=== PATIENT | male | born 1955 | race Two or more races ===

== ENCOUNTER 2024-09-22 17:19 | Emergency (ER) | payer MEDICARE, MEDICAID, SELFPAY ==
[2024-09-22 17:37] VITALS: PULSE 71; RESP 20; O2SAT 99
[2024-09-22 17:47] VITALS: BP 178/96; PULSE 73; RESP 18; TEMP 37.1; O2SAT 99; BMI 23.3
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
[2024-09-22] MEDS: HYDROcodone/APAP 5/325 TABLET 1 TAB PO (20:14)
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
== END 2024-09-22 21:58 | disposition home or self-care (01) ==
PROVIDERS: Emergency Provider Emergency Medicine; PCP Physician Assistant
DX: S39.012A Strain of muscle, fascia and tendon of lower back, initial encounter (principal); S39.91XA Unspecified injury of abdomen, initial encounter; V89.9XXA Person injured in unspecified vehicle accident, initial encounter
CPT/HCPCS: 72100; 74176; 99284; A9270

== ENCOUNTER 2025-07-05 19:12 | Inpatient (IN) | payer MEDICARE, MEDICAID, SELFPAY ==
[2025-07-05 19:14] VITALS: BP 177/93; PULSE 74; RESP 19; TEMP 37.6; O2SAT 98
[2025-07-05 19:16] VITALS: BMI 23.7
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
--- NOTE | 2025-07-05 19:20 | XR_ITS ---
EXAMINATION: AP chest single view TECHNIQUE: AP portable semiupright chest single view Date and time: July 05, 2025, 2018 hours, comparison 05/18/2023 INDICATIONS: Onset dizziness shortness of breath today. FINDINGS: Normal heart size Lungs are clear. The osseous structures are intact IMPRESSION: No active disease
[2025-07-05 19:33] VITALS: PULSE 93; O2SAT 99
[2025-07-05 19:38] LABS: Basophils # (Auto) 0.1 Thou/mm3 (0.0-0.2); Basophils % (Auto) 1 % (0-2.5); Eosinophils # (Auto) 0.2 Thou/mm3 (0.0-0.5); Eosinophils % (Auto) 3 % (0-10); Hematocrit 42.0 % (41.0-53.0); Hemoglobin 15.5 g/dL (13.5-16.0); Immature Granulocytes Auto 0.01 Thou/mm3 (0.00-0.00); Lymphocytes # (Auto) 2.2 Thou/mm3 (1.0-4.8); Lymphocytes % (Auto) 34 % (10-50); Mean Corpuscular HGB Conc 36.9 g/dl (31.0-37.0); Mean Corpuscular Hemoglobin 31.6 pg (25.0-35.0); Mean Corpuscular Volume 86 fL (80-100); Monocytes # (Auto) 0.5 Thou/mm3 (0.0-0.8); Monocytes % (Auto) 8 % (0-12); Neutrophils # (Auto) 3.5 Thou/mm3 (1.8-7.7); Neutrophils % (Auto) 55 % (37-80); Nucleated Red Blood Cell # 0.00 Thou/mm3 (0.00-0.00); Nucleated Red Blood Cell % 0 /100 WBC (0); Platelet Count 239 Thou/mm3 (140-440); RDW Standard Deviation 38.3 fL (35.1-43.9); Red Blood Count 4.91 Miln/mm3 (4.50-5.90); White Blood Count 6.5 Thou/mm3 (3.8-10.6)
[2025-07-05 19:45] VITALS: BP 183/114; PULSE 74; RESP 18; O2SAT 100
[2025-07-05 19:57] LABS: Alanine Aminotransferase 14 U/L (10-49); Albumin, Serum 4.9 gm/dL (3.4-4.8); Albumin/Globulin Ratio 2.0 (1.2-2.2); Alkaline Phosphatase 45 U/L (46-116); Anion Gap 11 (7-16); Aspartate Amino Transferase 20 U/L (0-34); BUN/Creatinine Ratio 9 Ratio (12-20); Bilirubin,Total 0.9 mg/dL (0.3-1.2); Blood Urea Nitrogen 11 mg/dL (9-23); Calcium 10.1 mg/dL (8.3-10.6); Calcium (Corrected) 10.1 mg/dL (8.5-10.1); Carbon Dioxide 28.2 mMol/L (20.0-31.0); Chloride 102 mMol/L (98-107); Creatinine (Component) 1.2 mg/dL (0.6-1.3); Estimated Creatinine Clearance 63.8 mL/min (>60); Globulin 2.5 gm/dL (2.3-3.5); Glucose 119 mg/dL (74-106); Osmolality,Calculated 281 (275-295); Potassium 4.0 mMol/L (3.4-5.1); Sodium 141 mMol/L (136-145); Total Protein 7.4 gm/dL (5.7-8.2); Troponin I < 0.020 ng/mL (0.0-0.045); eGFR > 60 See Note
[2025-07-05] MEDS: RINGERS LACTATED 1000 ML 1,000 ML 999 ML IV (22:03)
[2025-07-05 22:30] LABS: Amorphous Crystals,Urine Present (Absent); Bacteria,Urine Rare; Bilirubin,Urine Negative (Negative); Blood,Urine Negative (Negative); Budding Yeast,Urine Present; Clarity,Urine Turbid (Clear/Hazy); Collection Type, Urine Clean Catch; Color,Urine Yellow (Lt Yel-Yel); Glucose, Urine Negative (Negative); Ketones,Urine Negative (Negative); Leukocyte Esterase,Urine Negative (Negative); Nitrite,Urine Negative (Negative); PH,Urine 7.5 (5.0-7.0); Protein,Urine Negative (Neg - Trace); RBC,Urine 4 /hpf (0-3); Specific Gravity,Urine 1.011 (1.001-1.035); Squamous Epithelial Cell,Urine 3 /hpf (0-5); Urobilinogen,Urine Negative mg/dL (0.0-1.0); WBC,Urine 18 /hpf (0-5)
[2025-07-05 22:35] VITALS: BP 181/93; PULSE 78; RESP 19; TEMP 37.2; O2SAT 100
[2025-07-05 22:38] LABS: Culture Indicated,Urine Yes
[2025-07-05 22:47] LABS: Amphetamine/Methamp Scrn,U Negative (Negative); Barbiturate Screen,Urine Negative (Negative); Benzodiazepines Screen,Urine Negative (Negative); Benzoylecgonine Screen, Ur Negative (Negative); Fentanyl Screen,Urine Negative (Negative); Opiate Screen,Urine Positive (Negative); THC Screen,Urine Negative (Negative)
[2025-07-05] MEDS: METOCLOPRAMIDE INJ 5 MG/ML VIAL 2 ML IVP (22:49)
--- NOTE | 2025-07-05 22:49 | XR_ITS ---
Examination: CTA carotids with intravenous contrast CTA brain, head with intravenous contrast. 2-D sagittal, coronal reconstructions. 3-D reconstructions. Exam date and time: July 05, 2025 11:11 p.m. INDICATIONS: Stroke alert, dizziness tremors today CTDI: vol (mGy) 11.3 DLP: (mGycm) 477 Technique: Multiple CTA axial brain, head carotid images post intravenous contrast injection 75 cc, [id number]. 2-D sagittal, coronal reconstructions. 3-D reconstructions, 3-D post processing including vascular maximum intensity projection images. Low dose protocols were performed. One or more of the following dose reduction techniques were used; automated exposure control, adjustment of the mA and/or KV according to patient size, use of iterative reconstruction technique. Findings: No significant common carotid carotid bifurcation or internal carotid artery stenoses Codominant vertebral arteries in the neck with no significant stenoses Intracranial vertebral arteries basilar artery posterior cerebral branches fill with no large vessel occlusions Middle cerebral anterior cerebral arteries also demonstrate no large vessel occlusions IMPRESSION: No significant neck arterial stenoses No cerebral large vessel arterial occlusions or thrombus
[2025-07-05 23:20] VITALS: BP 170/83; PULSE 81; RESP 14; TEMP 37.2; O2SAT 99
--- NOTE | 2025-07-05 23:26 | PC.NURSE ---
stroke called at [address] ding request. pt was taken to ct with this rn and tech. teleneuro activated, but still no tele doc on screen
--- NOTE | 2025-07-05 23:41 | PD.EDADDENDU ---
Emergency Room Addendum <Angela Huerta - Last Filed: 07/06/25 00:52> Addendum Narrative: I took over the care from previous shift physician, Dr. Baum, on 11:30pm. See previous notes for complete H & P and ED course. I reviewed all diagnostic test results. Diagnoses include: Stroke-like symptoms Treatment here from me included: Rocephin Plavix I discussed the case with our teleneurologist. About the presentation and exam and diagnostics and treatments here. Recommends admission to the hospitalist service for further work-up. I discussed the case with our hospitalist. About the presentation and exam and diagnostics and treatments here. And need of further care in the hospital. Will accept the patient. Audi Scott MD <Audi Scott MD - Last Filed: 07/06/25 01:59> Addendum Narrative: I took over the care from previous shift physician, Dr. Baum, 11:30 PM on 07/05/2025. See previous notes for complete H & P and ED course. I reviewed all diagnostic test results. Diagnoses include: Stroke-like symptoms UTI Treatment here from me included: Rocephin Plavix ASA I discussed the case with our teleneurologist. About the presentation and exam and diagnostics and treatments here. Recommended admission to the hospitalist service for further work-up. I discussed the case with our hospitalist. About the presentation and exam and diagnostics and treatments here. And need of further care in the hospital. Will accept the patient. Audi Scott MD
[2025-07-06] VITALS (11 sets, daily range): BP systolic 153–193; BP diastolic 83–104; PULSE 84–106; RESP 14–21; TEMP 36.2–37.2; O2SAT 95–100
--- NOTE | 2025-07-06 | XR_ITS ---
Examination: MRI brain without intravenous contrast. MRI brain with intravenous contrast MRA brain without intravenous contrast MRA carotids with intravenous contrast Date and time of exam: July 06, 2025, 0952 hours INDICATIONS: Syncopal episode this morning Technique: Multiple axial and sagittal images of the brain obtained. Pre and post intravenous administration 20 cc gadolinium Siemens high-resolution 1.5 Arely short bore scanners utilized. Sagittal sections, T1-weighted, TR 500, TE 14, are performed. Axial sections proton-density and T2-weighted have been obtained. Inversion recovery axial images, TR 9, 260, TE 111, TI 2500. Diffusion weighted images, axial sections, TR 4800, TE 128, B value 1000 Axial sections, ADC map, TR 4800, TE 128 MR a neck images post intravenous administration 20 cc gadolinium 3D angiographic reconstructions including postprocessing 3D imaging Findings: Enlargement of the sella turcica is not present. The optic chiasm and infundibular are not remarkable. Prepontine and interpeduncular cisterns are not enlarged. There is no localized enlargement of the medulla or arleen. Fourth ventricle and cerebellar tonsils appear normal in position. No subacute area of hemorrhage density is seen. Mass in the cerebellopontine angle region is not evident. Globes symmetrical. Orbital musculature including medial lateral rectus muscles do not exhibit abnormality. Diffusion-weighted images demonstrate no focus of restricted diffusion Large area of encephalomalacia versus arachnoid cyst peripheral to the left cerebral hemisphere. Increased white matter signal not seen Mass effect upon the ventricular system is not identified. Impression: Negative for acute hemorrhage mass effect or midline shift No acute infarct Negative for acute hemorrhage mass effect or midline shift No abnormal enhancing cerebellar or cerebral lesions No carotid stenoses No cerebral large vessel arterial occlusions
--- NOTE | 2025-07-06 00:09 | PD.TNEURO ---
Tele Neuro Consultation Consultation Date 07/06/25 Most Recent Vital Signs Last Vital Signs Temp 99 F 07/05/25 23:20 Pulse 81 07/05/25 23:20 Resp 14 07/05/25 23:20 BP 170/83 H 07/05/25 23:20 Pulse Ox 99 07/05/25 23:20 O2 Del Method Room Air 07/05/25 23:20 Consultation Narrative [facility] Tele[facility]rology [facility] Patient Name:???mega mota Date of :???1955 Identification Number:??? Date of Service:???07/05/2025 22:50:55 Diagnosis:?R42 - Dizziness/ Vertigo/ Giddiness Impression: ?Patient with h/o HTN, HLD, who presents with presyncopal dizziness, especlally upon standing. He had a fall with mild head injury. On exam has some R facial numbness and bilateral visual field defect in the upper quadrants. CTH shows L frontotemporal subarachnoid cyst that is large but to my comparisons back to 2007 appear stable and may be incidental. We have to rule out orthostatic hypotension. Stroke or cardiovascular syncope or other causes (toxic/metabolic/infectious/anemia) for dizziness may be present. If no other cause is found and dizziness persists, then routine NSG consult may be needed. Patient is outside the window for IV thrombolytics. CTA shows NO LVO. admit for further workup. Our recommendations are outlined below. Recommendations: ? Stroke/Telemetry Floor ? Neuro Checks ? Bedside Swallow Eval ? DVT Prophylaxis ? IV Fluids, Normal Saline ? Head of Bed 30 Degrees ? Euglycemia and Avoid Hyperthermia (PRN Acetaminophen) ? Initiate dual antiplatelet therapy with Aspirin 81 mg daily and Clopidogrel 75 mg daily. ? Antihypertensives PRN if Blood pressure is greater than 220/120 or there is a concern for End organ damage/contraindications for permissive HTN. If blood pressure is greater than 220/120 give labetalol PO or IV or Vasotec IV with a goal of 15% reduction in BP during the first 24 hours. ? admit for further stroke and syncope workup. ?Rule out orthostatic hypotension ?cardiac workup for syncope ?If no other cause is found and dizziness persists, consider NSG consultation to review imaging as well. Sign Out: ? Discussed with Emergency Department Provider Advanced Imaging: CTA Head and Neck Completed. LVO:No Patient is not a candidate for DALJIT Metrics: Last Known Well: 07/05/2025 16:00:00 Dispatch Time: 07/05/2025 22:50:55 Arrival Time: 07/05/2025 19:12:00 Initial Response Time: 07/05/2025 23:03:21Symptoms: dizziness. Initial patient interaction: 07/05/2025 23:31:21 NIHSS Assessment Completed: 07/05/2025 23:33:09Patient is not a candidate for Thrombolytic. Thrombolytic Medical Decision: 07/05/2025 23:35:04Patient was not deemed candidate for Thrombolytic because of following reasons: LKW outside 4.[address] Head: I personally reviewed all the CT images that were available to me and it showed: large L frontotemporal subarachnoid cyst, No Acute Hemorrhage or Acute Core Infarct Primary Provider Notified of Diagnostic Impression and Management Plan on: 07/05/2025 23:58:33 History of Present Illness:Patient is a 70 year old Male. Patient was brought by EMS for symptoms of dizziness. he had a fall today where he felt he was going to pass out and laid himself down but still bumped his head on the back. He crawled and got an aspirin, then he started getting lightheaded and dizzy. this has persisted and he is unable to stand without getting dizzy. lying down helps. He is getting LR bolus. He has a mass in the brain but he says I'm told its nothing to worry about . He has baseline tremor since childhood. Patient sometimes uses a cane. Past Medical History: ?Hypertension ?Hyperlipidemia Other PMH:? L fronto temporal large subarachnoid cyst Medications: No Anticoagulant use? No Antiplatelet use Reviewed EMR for current medications Allergies:? Reviewed Social History: Smoking: No Family History: There is no family history of premature cerebrovascular disease pertinent to this consultation ROS : 14 Points Review of Systems was performed and was negative except mentioned in HPI. Past Surgical History: There Is No Surgical History Contributory To Today?s Visit Examination: BP(170/83),?Pulse(87), 1A: Level of Consciousness - Alert; keenly responsive?+ 0 1B: Ask Month and Age - Both Questions Right?+ 0 1C: Blink Eyes & Squeeze Hands - Performs Both Tasks?+ 0 2: Test Horizontal Extraocular Movements - Normal?+ 0 3: Test Visual Cohen - Bilateral Hemianopia?+ 3 4: Test Facial Palsy (Use Grimace if Obtunded) - Normal symmetry?+ 0 5A: Test Left Arm Motor Drift - No Drift for 10 Seconds?+ 0 5B: Test Right Arm Motor Drift - No Drift for 10 Seconds?+ 0 6A: Test Left Leg Motor Drift - No Drift for 5 Seconds?+ 0 6B: Test Right Leg Motor Drift - No Drift for 5 Seconds?+ 0 7: Test Limb Ataxia (FNF/Heel-Garcia) - No Ataxia?+ 0 8: Test Sensation - Mild-Moderate Loss: Less Sharp/More Dull?+ 1 9: Test Language/Aphasia - Normal; No aphasia?+ 0 10: Test Dysarthria - Normal?+ 0 11: Test Extinction/Inattention - No abnormality?+ 0 NIHSS Score:?4 NIHSS Free Text :?numbness on R face ?cannot stand without feeling dizzy Pre-Morbid Modified Calvin Scale: 1 Points = No significant disability despite symptoms; able to carry out all usual duties and activities Spoke with :?Dr Scott This consult was conducted in real time using interactive audio and video technology. Patient was informed of the technology being used for this visit and agreed to proceed. Patient located in hospital and provider located at home/office setting. Patient is being evaluated for possible acute neurologic impairment and high probability of imminent or life-threatening deterioration. I spent total of 35 minutes providing care to this patient, including time for face to face visit via telemedicine, review of medical records, imaging studies and discussion of findings with providers, the patient and/or family. Dr Lamine Stephens [facility] For Inpatient follow-up with [facility] physician please call [facility] at . As we are not an outpatient service for any post hospital discharge needs please contact the hospital for assistance. If you have any questions for the [facility] physicians or need to reconsult for clinical or diagnostic changes please contact us via [facility] at . Signature :Meme Stephens
[2025-07-06] MEDS: cefTRIAXone/D5w 1gm IV premix 1 GM/50 ML BAG IV (00:14)
[2025-07-06] MEDS: ASPIRIN 81 MG CHEW 324 MG PO (00:14)
[2025-07-06] MEDS: CLOPIDOGREL BISULFATE 75 MG TABLET PO ×2 (00:14→10:45)
--- NOTE | 2025-07-06 01:01 | PD.RESHP ---
Documentation for date of: 07/06/25 [facility] History of Present Illness History of present illness: Mr. Shen is a 70 y/o male with PMH left frontotemporal subarachnoid cyst (diagnosed 2007), hypertension, hyperlipidemia, tremor who presents with acute onset dizziness. LKAW 16:00 on 07/05. NIHSS 4. Patient was at home when he suddenly felt like the room was spinning, had lightheadedness, and felt that he was about to pass out. He lowered himself to the ground but hit his left wrist and left posterior head on the way down. He felt too dizzy to stand up and called EMS. Denies previous episodes. Associated with nausea which has resolved with metoclopramide. Denies syncope, headache, acute changes in vision, chest pain/pressure, shortness of breath, tinnitus, fullness of ear, recent illness, palpitations, sweating, paresthesias, weakness. PCP: Kathrine Jay NP Previously followed with Dr. Millard, Dr. Ledesma. Also saw a neurologist in [facility]. Has never had any surgical intervention for the subarachnoid cyst. ED course: Afebrile. BP 170-180s/80-110s. CBC and CMP unremarkable. UA negative for UTI. UDS + opiates. Stroke alert called. LKAW 16:00 on 07/05. NIHSS 4. Tele-neuro's exam showed R facial numbness and bilateral visual field defect in the upper quadrants. CT head showed stable large subarachnoid cyst since 2007, per tele neurologist and radiologist. No previous head imaging available in EMR. CTA showed no LVO. Wrist XR showed no fracture. CXR unremarkable. Given 1L LR, metoclopramide 5 mg IV, ceftriaxone 1 g IV, Aspirin 325 mg PO, plavix 75 mg PO. PMHx: left frontotemporal subarachnoid cyst (diagnosed 2007), hypertension, hyperlipidemia, tremor, depression, anxiety, low back pain/L leg pain Allergies: NKDA Home meds: Pt does not know what medications he takes, but does note that he takes 3 BP meds, 2 depression/anxiety meds, statin, med for triglycerides, and Roy PRN Pending med rec SgHx: none SHx: Denies tobacco, EtOH, recreational drug use. Lives alone in apartment. FHx: none reported Review of Systems Review of Systems Narrative Review of Systems: 14 point ROS negative other than HPI Exam Vital Signs Temp Pulse Resp BP Pulse Ox O2 Del Method 99 F 81 14 170/83 H 99 Room Air 07/05/25 23:20 07/05/25 23:20 07/05/25 23:20 07/05/25 23:20 07/05/25 23:20 07/05/25 23:20 Narrative Exam General: No acute distress, well nourished Eye: PERRL, EOMI, normal conjunctiva, no scleral icterus HENT: Normocephalic, atraumatic, normal hearing, moist oral mucosa Neck: Supple, non-tender, no JVD, no lymphadenopathy Lungs: Clear to auscultation bilaterally, non-labored respirations, symmetric chest rise, no use of accessory muscles Heart: Normal S1 and S2, no S3 or S4 appreciated. Normal rate and regular rhythm, no murmurs, rubs gallops, or edema. Peripheral pulses intact bilaterally, capillary refill brisk distally Abdomen: Soft, non-tender, non-distended, normal bowel sounds. No guarding or rebound tenderness. Musculoskeletal: Normal range of motion and strength, no tenderness or swelling Skin: Skin is warm, dry, no rashes or lesions. Psychiatric: Cooperative, appropriate mood and affect Neurologic: Mental status: Orientation: Oriented to person, place, time, and situation Communication: Patient is cooperative and can follow simple instructions Language: Speech fluent, normal rate and volume, comprehension intact Cranial nerves: CN II: Visual tay intact CN III: Pupils equal, round, and reactive to light CN III, IV, : No gaze deviation, no nystagmus Horizontal pursuit: intact Vertical pursuit: intact Ptosis: none CN V: Facial sensation to light touch intact bilaterally at the forehead, cheeks, and jaw line CN VII: Face symmetric, no facial droop appreciated CN VIII: Able to hear and respond to conversation at normal volume, intact to finger rub CN IX, X: Palate elevation symmetric, uvula midline CN XI: Head turn and shoulder shrug strong, symmetric bilaterally CN XII: Normal tongue protrusion without deviation, no fasciculations Motor: Normal bulk and tone No atrophy Tremor of b/l UE, at rest and action, worse with intentional actions, worse with anxiety, also includes head (present since childhood) Muscle strength: Shoulder abduction: R 5/5 L 5/5 Elbow flexion: R 5/5 L 5/5 Elbow extension: R 5/5 L 5/5 Hip flexion: R 5/5 L 5/5 Hip extension: R 5/5 L 5/5 Knee flexion: R 5/5 L 5/5 Knee extension: R 5/5 L 5/5 Sensory: RUE: Light touch intact LUE: Light touch intact RLE: Light touch intact LLE: Light touch intact Reflexes: Biceps (C5-6): R 3+ L 3+ Brachioradialis (C5-6): R 3+ L 3+ Triceps (C7-8): R 3+ L 3+ Patellae (L3-4): R 3+ L 3+ Achilles (S1-2):R 3+ L 3+ No clonus Cerebellum: RUE: Dysmetria present (finger to nose) LUE: Dysmetria present (finger to nose) RLE: No dysmetria (heel to heath) LLE: No dysmetria (heel to heath) Romberg: patient refused to stand Gait: Patient refused to stand 2/2 vertigo Results: Labs 07/06/25 04:38 07/06/25 04:38 Labs: Short CBC 07/05/25 Range/Units 19:32 WBC 6.5 (3.8-10.6) Thou/mm3 Hgb 15.5 (13.5-16.0) g/dL Hct 42.0 (41.0-53.0) % Plt Count 239 (140-440) Thou/mm3 BMP 07/05/25 19:32 Sodium 141 Potassium 4.0 Chloride 102 Carbon Dioxide 28.2 BUN 11 Creatinine 1.2 Glucose 119 H Calcium 10.1 Cardiac Enzymes 07/05/25 Range/Units 19:32 Troponin I < 0.020 (0.0-0.045) ng/mL Liver Function 07/05/25 Range/Units 19:32 Total Bilirubin 0.9 (0.3-1.2) mg/dL AST 20 (0-34) U/L ALT 14 (10-49) U/L Alkaline Phosphatase 45 L (46-116) U/L Albumin 4.9 H (3.4-4.8) gm/dL Urine 07/05/25 07/05/25 Range/Units 22:01 22:35 Urine Color Cancelled Yellow Urine Clarity Cancelled Turbid A Urine pH Cancelled 7.5 H Ur Specific [place] Cancelled 1.011 Urine Protein Cancelled Negative Urine Glucose (UA) Cancelled Negative Quality Measures Quality Measures none Advance care planning discussed with:: patient Medications Home Medications and Allergies Home Medications ?Medication ?Instructions ?Recorded ?Confirmed ?Type benazepril 40 mg tablet (Lotensin) 40 mg PO DAILY #0 mg 08/13/13 07/06/25 History hydrochlorothiazide 25 mg tablet 25 mg PO QAM #0 mg 08/13/13 07/06/25 History metoprolol succinate 25 mg 1 tab PO BID ##0 08/13/13 07/06/25 History tablet,extended release 24 hr paroxetine HCl 40 mg tablet (Paxil) 40 mg PO QAM #0 mg 08/13/13 07/06/25 History divalproex 250 mg tablet,delayed 250 mg PO BID 01/03/19 07/06/25 History release hydrocodone 5 mg-acetaminophen 300 1 tab PO Q12H 01/03/19 07/06/25 History mg tablet atorvastatin 10 mg tablet 10 mg PO DAILY 07/06/25 07/06/25 History fenofibrate 120 mg tablet 120 mg PO DAILY 07/06/25 07/06/25 History Allergies Allergy/AdvReac Type Severity Reaction Status Date / Time No Known Allergies Allergy Verified 07/05/25 19:32 Visit Medications Acetaminophen (Acetaminophen 325 Mg Tablet) 650 mg PO Q6H PRN PRN Reason: Fever >100.3 Stop: 08/05/25 00:54 Acetaminophen (Acetaminophen 325 Mg Tablet) 650 mg PO Q6H PRN PRN Reason: PAIN SCALE 1-3 (mild Stop: 08/05/25 00:54 Heparin Sodium (Porcine) (Heparin Sod Inj 5000 Unit/Ml Vial) 5,000 unit SC Q8HR BEN Stop: 07/20/25 05:59 Ondansetron HCl (Ondansetron Inj 2 Mg/Ml Inj 2 Ml) 4 mg IVP Q6H PRN; Protocol PRN Reason: NAUSEA OR VOMITING Stop: 08/05/25 00:54 Discontinued Medications Aspirin (Aspirin 81 Mg Chew) 324 mg PO X1 ONE Stop: 07/05/25 23:52 Last Admin: 07/06/25 00:14 Dose: 324 mg Clopidogrel Bisulfate (Clopidogrel Bisulfate 75 Mg Tablet) 75 mg PO X1 ONE Stop: 07/05/25 23:52 Last Admin: 07/06/25 00:14 Dose: 75 mg Lactated Ringer's (Lactated Ringers) 1,000 mls @ 999 mls/hr IV .Q1H1M ONE Stop: 07/05/25 22:33 Last Infusion: 07/05/25 23:45 Dose: Infused Ceftriaxone Sodium/Dextrose (Rocephin/D5w 1gm Iv Premix) 1 gm in 50 mls @ 100 mls/hr IV X1 ONE Stop: 07/06/25 00:17 Last Infusion: 07/06/25 00:45 Dose: Infused Metoclopramide HCl (Metoclopramide Inj 5 Mg/Ml Vial 2 Ml) 5 mg IVP STAT STA; Protocol Stop: 07/05/25 22:41 Last Admin: 07/05/25 22:49 Dose: 5 mg Assessment & Plan Plan Mr. Shen is a 70 y/o male with PMH left frontotemporal subarachnoid cyst (diagnosed 2007), hypertension, hyperlipidemia, tremor who presents with acute onset dizziness. LKAW 16:00 on 07/05. NIHSS 4. Admitted for stroke w/u. #Vertigo #Dysmetria #c/f stroke Hx stroke/TIA: none Hx afib: none Smoking hx: none Initial symptoms: acute onset dizziness/vertigo (ongoing), nausea (improved with metoclopramide), presyncope, dysmetria (though may be exacerbated by chronic tremor), R facial numbness and bilateral visual field defect in the upper quadrants. LKAW: 16:00 on 07/05 Initial NIHSS: 4 Inital BP: 170/385d-53-400o Initial glucose: 119 UDS: + opiated (rx Roy for chronic pain) CT head w/o: Large left subarachnoid cyst present, causing mass effect. No acute hemorrhage. CTA head/neck w/: No LVO MRI/MRA w/ and w/o: pending Meds given: Aspirin 325 mg PO, Plavix 75 mg DDX: cerebellar stroke, mass effect from left subarachnoid cyst, vestibular neuritis. Less likely BPPV given sx not positional, vertigo is persistent. Less likely labyrinthitis or Meniere disease given no hearing loss/tinnitus/ear fullness. Plan: - Pending A1C, lipid panel, TSH, troponin, MRI, TTE, EKG, bedside swallow eval - Started aspirin 81 mg PO daily, plavix 75 mg PO daily - Neuro Checks q4h - Antihypertensives PRN if Blood pressure is greater than 220/120 or there is a concern for End organ damage/contraindications for permissive HTN. If blood pressure is greater than 220/120 give labetalol PO or IV or Vasotec IV with a goal of 15% reduction in BP during the first 24 hours. - Aspiration Precautions, Head of bed 30 degrees - Euglycemia and avoid Hyperthermia - Consulted neuro, appreciate recs #Left subarachnoid cyst Diagnosed 2007. Has seen multiple neurologists in the past, including Dr. Meyer. No previous surgical intervention. Seen on CT head. Stable per tele neuro and radiology, though no previous head imaging available on this EMR Plan: - If other sources of vertigo/dysmetria ruled out, can consider transfer for neurosurgery #Preyncope No anemia on CBC, no hx heart disease/arrhythmias. Electrolytes WNL. Less likely infection as patient has no fever, no leukocytosis, no shortness of breath/cough, urinary sx Given 1L LR in ED DDX: cardiac arrhythmia, orthostatic hypotension, aortic stenosis, opiates/medications Plan: - Pending orthostatics (ordered for 7 AM 07/06) - Pending TTE #Tremor Present since childhood Tremor of b/l UE, at rest and action, worse with intentional actions, worse with anxiety, also includes head (present since childhood) Most likely essential tremor. Plan: - Nothing to do at this time since tremor is not bothersome to patient - Can consider propranolol if pharmacological intervention deemed necessary #Ground level fall 2/2 dizziness, presyncope Not on blood thinners CT head showd no acute hemorrhage XR wrist showed no fracture. Pt reports his wrist feels better Plan: - CTM with neuro checks - Fall precautions #Hypertension Pt takes 3 BP meds at home, does not know which ones Plan: - Pending med rec #Hyperlipidemia Plan: - Atorvastatin 80 mg PO daily for plaque stabilization #Depression #Anxiety Home med: Paxil (unknown dose), Divalproax (unknown dose, DC vs EC?) Plan: - Paroxetine 40 mg daily (home med) - Pending med rec Checklist Dispo: Admit to tele for q4h neuro checks Diet: Pending bedside swallow eval Bowel Reg: n/a VTE ppx: heparin subQ GI ppx: n/a Pain mgmt: Tylenol PRN Code status: full Plan discussed with Dr. Padron and Dr. Maldonado Chavez MD PGY1 Attending Provider Attestation/Addendum 70-year-old male patient with hypertension, hyperlipidemia, depression, subarachnoid sees sudden onset of dizziness described as spinning sensation and unable to have a steady gait. This happened at home. Patient denies syncopal episode no apparent syncopal episode no nausea vomiting. He denies trauma or head injury. CT scan of the brain without contrast showed no acute infarction. Patient will be admitted for stroke workup. He has history of subarachnoid cyst. I discussed with and supervised the resident physician who took care of this patient. I agree with the assessment and plan as above.
--- NOTE | 2025-07-06 01:31 | ECHO_ITS ---
Transthoracic Echo Report Ht (in): 73 Wt (lb): 180 Exam Location: Echo Lab Status: Inpatient Baseball Coach: Laine Almeida Indications: Procedure Performed: BP: 167 / 91 HR: 89 MEASUREMENTS (Male / Female) Normal Values 2D ECHO LV Ejection Fraction MOD BP 68.2 % >= 55 % LV Cardiac Index MOD BP 2987.4 cm?/min?m? LV Ejection Fraction MOD 4C 70.3 % LV Cardiac Index MOD 4C 3503.4 cm?/min?m? LV Ejection Fraction 4C AL 71.1 % LV Cardiac Index 4C AL 3773.7 cm?/min?m? LV Ejection Fraction MOD 2C 66.6 % LV Cardiac Index MOD 2C 2410.8 cm?/min?m? LV Ejection Fraction 2C AL 68.6 % LV Cardiac Index 2C AL 2541.0 cm?/min?m? LA Volume Index 12.3 cm?/m? 16 - 28 cm?/m? M-MODE Aortic Root Diameter MM 2.6 cm LA Systolic Diameter MM 3.3 cm LA Ao Ratio MM 1.3 AV Cusp Separation MM 2.0 cm DOPPLER AV Peak Velocity 135.0 cm/s AV Peak Gradient 7.3 mmHg AV Mean Gradient 4.0 mmHg AV Velocity Time Integral 28.2 cm AI Peak Velocity 178.0 cm/s AI Peak Gradient 12.7 mmHg AI Pressure Half Time 597.0 ms LVOT Peak Velocity 105.0 cm/s LVOT Peak Gradient 4.4 mmHg LVOT Velocity Time Integral 21.2 cm MV Area PHT 4.1 cm? Mitral E Point Velocity 64.0 cm/s Mitral A Point Velocity 72.8 cm/s Mitral E to A Ratio 0.9 LV E' Lateral Velocity 8.6 cm/s Mitral E to LV E' Lateral Ratio 7.5 LV E' Septal Velocity 7.7 cm/s Mitral E to LV E' Septal Ratio 8.3 TR Peak Velocity 235.0 cm/s TR Peak Gradient 22.1 mmHg PV Peak Velocity 110.0 cm/s PV Peak Gradient 4.8 mmHg FINDINGS Left Ventricle Normal left ventricular size, wall thickness, systolic function with no obvious regional wall motion abnormalities. There is grade I diastolic dysfunction of the left ventricle (impaired relaxation pattern). The ejection fraction is visually estimated at 55-60%. Right Ventricle The right ventricle is normal in size and systolic function. Left Atrium The left atrium is normal by two-dimensional, color flow and Doppler imaging with no structural abnormalities, no thrombus formation present. Right Atrium The right atrium is normal by two-dimensional imaging, color flow and Doppler imaging with no structural abnormalities, no thrombus formation present. Atrial Septum The interatrial septum appears normal with no evidence of a shunt. Aorta The aorta is normal by two-dimensional, color flow and Doppler interrogation. Mitral Valve The mitral valve is normal by two-dimensional, color flow and Doppler interrogation. There is no significant mitral valve regurgitation, stenosis or prolapse. Aortic Valve The aortic valve is trileaflet and normal by two-dimensional, color flow and Doppler interrogation. Mild aortic valve regurgitation. Tricuspid Valve The tricuspid valve is normal by two-dimensional, color flow and Doppler interrogation. There is trace tricuspid valve regurgitation. Pulmonic Valve The pulmonic valve is not well visualized. There is no significant pulmonic valve regurgitation. Vessels The pulmonary artery appears normal. The inferior vena cava pulmonary and hepatic veins appear normal. Pericardium The pericardium is normal by two-dimensional imaging. There is no significant pericardial effusion. CONCLUSIONS Indication: Stroke negative Bubble study Agitated saline contrast was performed, with no evidence on intra-cardiac shunt. Normal left ventricular size and function. There is grade I diastolic dysfunction. Estimated EF at 55-60%. The RV is normal in size and systolic function. Trace mitral and trace tricuspid regurgitation Xiomara Golden (Electronically Signed) Final Date: 06 July 2025 19:14
[2025-07-06 05:11] LABS: Basophils # (Auto) 0.1 Thou/mm3 (0.0-0.2); Basophils % (Auto) 1 % (0-2.5); Eosinophils # (Auto) 0.0 Thou/mm3 (0.0-0.5); Eosinophils % (Auto) 0 % (0-10); Hematocrit 41.6 % (41.0-53.0); Hemoglobin 14.9 g/dL (13.5-16.0); Immature Granulocytes Auto 0.03 Thou/mm3 (0.00-0.00); Lymphocytes # (Auto) 1.8 Thou/mm3 (1.0-4.8); Lymphocytes % (Auto) 19 % (10-50); Mean Corpuscular HGB Conc 35.8 g/dl (31.0-37.0); Mean Corpuscular Hemoglobin 31.0 pg (25.0-35.0); Mean Corpuscular Volume 87 fL (80-100); Monocytes # (Auto) 0.4 Thou/mm3 (0.0-0.8); Monocytes % (Auto) 5 % (0-12); Neutrophils # (Auto) 7.2 Thou/mm3 (1.8-7.7); Neutrophils % (Auto) 76 % (37-80); Nucleated Red Blood Cell # 0.00 Thou/mm3 (0.00-0.00); Nucleated Red Blood Cell % 0 /100 WBC (0); Platelet Count 259 Thou/mm3 (140-440); RDW Standard Deviation 38.6 fL (35.1-43.9); Red Blood Count 4.81 Miln/mm3 (4.50-5.90); White Blood Count 9.5 Thou/mm3 (3.8-10.6)
[2025-07-06 05:26] LABS: Glucose Estimated Average 111 mg/dL (80-131); Hemoglobin A1C 5.5 % Hgb (4.8-6.0)
[2025-07-06 05:32] LABS: Anion Gap 12 (7-16); BUN/Creatinine Ratio 11 Ratio (12-20); Blood Urea Nitrogen 11 mg/dL (9-23); Calcium 9.4 mg/dL (8.3-10.6); Carbon Dioxide 25.6 mMol/L (20.0-31.0); Cardiac Risk Estimate 4.6 RATIO (4.0-6.7); Chloride 103 mMol/L (98-107); Cholesterol 147 mg/dL (132-200); Creatinine (Component) 1.0 mg/dL (0.6-1.3); Estimated Creatinine Clearance 76.6 mL/min (>60); Glucose 128 mg/dL (74-106); HDL Cholesterol 32 mg/dL (40-60); LDL Cholesterol,Calculated 96 mg/dL (0-130); Magnesium 1.8 mg/dL (1.6-2.6); Osmolality,Calculated 282 (275-295); Potassium 3.5 mMol/L (3.4-5.1); Sodium 141 mMol/L (136-145); Thyroid Stimulating Hormone 3.47 uIU/mL (0.55-4.78); Triglycerides 96 mg/dL (30-150); Troponin I < 0.020 ng/mL (0.0-0.045); eGFR > 60 See Note
--- NOTE | 2025-07-06 07:52 | PC.NURSE ---
Report received from pm nurse, patient to er with c/o sudden onset of dizziness yest. approx. 4pm yest., patient states he has a sense of spinning, worsens with movement and better when he remains still, currently dizziness is mild lying in gurney, patient gcs 15 at this time, c/o feeling weakness in both legs, skin is warm dry and pink, patient awaiting bed on floor, call light within reach.
--- NOTE | 2025-07-06 07:55 | PC.NURSE ---
Patient taken off bedpan, small dark brown stool noted, placed patient back onto bedpan do to him stating, i think i still need to go , clean bed rosas placed underneath patient, call light within reach.
--- NOTE | 2025-07-06 08:39 | PC.NURSE ---
called Donna in hematology regarding Coagulation studies, states they should result in approx. 15-20nin.
--- NOTE | 2025-07-06 08:42 | PC.NURSE ---
Spoke with Dr. Brady regarding patient stating he is clausterphobic and states i freak out in the MRI machine states he will place orders for medication to be given before MRI exam, Spoke with Coby pet technologist and states she will call me when she is ready to take patient for MRI, Patient made aware.
[2025-07-06 08:45] LABS: INR 1.1 (0.9-1.3); Partial Thromboplastin Time 26.0 Seconds (22.0-36.0); Prothrombin Time 11.9 Seconds (9.0-12.2)
--- NOTE | 2025-07-06 09:15 | PC.NURSE ---
Patient had hard large brown bm
[2025-07-06] MEDS: HEPARIN SOD INJ 5000 UNIT/ML VIAL SC ×3 (09:25→23:00)
[2025-07-06] MEDS: POTASSIUM CHL 10 mEq IVPB 10 MEQ/100 ML BAG 100 MEQ IV ×4 (09:31→15:06)
[2025-07-06] MEDS: MIDAZOLAM INJ 1 MG/ML VIAL 2 ML 2 MG IVP (09:46)
[2025-07-06] MEDS: ASPIRIN EC 81 MG TABEC PO (09:46)
--- NOTE | 2025-07-06 09:46 | PC.NURSE ---
potassium iv delayed, patient going to mri
--- NOTE | 2025-07-06 10:46 | PC.NURSE ---
Patient back from MRI, restarted potassium chloride.
--- NOTE | 2025-07-06 13:25 | ESPR_ITS ---
Documentation for date of: 07/06/25 Patient is a 70-year-old male with a past medical history of hypertension, hyperlipidemia, tremors, and frontotemporal subarachnoid cyst (2008 diagnosed) that appears to be stable who presented to the emergency room with a chief complaint of vertigo with generalized weakness. Upon admission given generalized weakness concern for stroke with well last known time of 1600. Initial NIHSS 1. CT head negative. Head and neck CTA negative for large vessel occlusion or stenosis of the carotid. MRI ordered. PT and speech evaluation added. Echo pending. LIpid Panel Triglycerides 96, cholesterol 147, HDl 32, LDL 96-->ASCVD 8.0 Moderate to high intensity. Pending echo w/ bubble study. Linsiopril resumed, follow up with [facility] provider for further adjutments. Vertico and Pre-syncope, penidng orthostatic vitals. EEG, pending. Orthostatic vitals pending. Senior Resident Attestation: I have discussed the case with supervising physician and consultant internship physician involved in the care of patient. I personally saw and examined patient and discussed the assessment and plan with the entire medical team, including attending. I agree with assessment and plan as documented below. - The patient's plan was discussed with attending Dr. Emily Vazquez MD PGY2 Internal Medicine Subjective Subjective Interval history: No overnight events. Patient was examined at bedside; they appear A&Ox4 and in NAD. Vitals/labs today significant for BP 167/91 and potassium 3.5. HgbA1c returned WNL at 5.5. Physical exam was benign and did not demonstrate any focal neurological deficits. Patient denied experiencing anything resembling a seizure nor hearing anyone endorse witnessing a seizure-like event from him. Plan Updates: -Ordered 07/06 EEG awake and drowsy, results pending -Started PO lisinopril 40 mg qD -Started IV labetalol 10 mg q10MIN prn for SBP>220 or DBP>105 or end organ damage (permissive hypertension for stroke protocol) -Started Cardiac Diet Exam Vital Signs Temp Pulse Resp BP Pulse Ox O2 Del Method 97.2 F 84 21 H 156/95 H 98 Room Air 07/06/25 12:00 07/06/25 12:00 07/06/25 12:00 07/06/25 12:00 07/06/25 12:00 07/06/25 12:00 Narrative Exam General: No acute distress, well nourished Eye: PERRL, EOMI, normal conjunctiva, no scleral icterus HENT: Normocephalic, atraumatic, normal hearing, moist oral mucosa Neck: Supple, non-tender, no JVD, no lymphadenopathy Lungs: Clear to auscultation bilaterally, non-labored respirations, symmetric chest rise, no use of accessory muscles Heart: Normal S1 and S2, no S3 or S4 appreciated. Normal rate and regular rhythm, no murmurs, rubs gallops, or edema. Peripheral pulses intact bilaterally, capillary refill brisk distally Abdomen: Soft, non-tender, non-distended, normal bowel sounds. No guarding or rebound tenderness. Musculoskeletal: Normal range of motion and strength, no tenderness or swelling Skin: Skin is warm, dry, no rashes or lesions. Neurologic: No facial droop appreciated. Facial sensation to light touch intact bilaterally at the forehead, cheeks, and jaw line. Able to smile, raise eyebrows, and puff out cheeks normally. 5/5 muscle strength of BUE and BLE. Psychiatric: Cooperative, appropriate mood and affect Objective Labs 07/07/25 05:37 07/07/25 05:37 Labs: Laboratory Results - last 24 hr 07/05/25 07/05/25 07/05/25 19:32 22:01 22:35 WBC 6.5 RBC 4.91 Hgb 15.5 Hct 42.0 MCV 86 MCH 31.6 MCHC 36.9 RDW Std Deviation 38.3 Plt Count 239 Neut % (Auto) 55 Lymph % (Auto) 34 [place] % (Auto) 8 Eos % (Auto) 3 Baso % (Auto) 1 Neut # (Auto) 3.5 Lymph # (Auto) 2.2 [place] # (Auto) 0.5 Eos # (Auto) 0.2 Baso # (Auto) 0.1 Immature Gran # (Auto) 0.01 H Absolute Nucleated RBC 0.00 Immature Gran % 0 Nucleated RBC % 0 PT INR APTT Sodium 141 Potassium 4.0 Chloride 102 Carbon Dioxide 28.2 Anion Gap 11 BUN 11 Creatinine 1.2 Estim Creat Clear Calc 63.8 eGFR > 60 BUN/Creatinine Ratio 9 L Glucose [address] Glu mg/dL Hemoglobin A1c Calculated Osmolality 281 Calcium 10.1 Corrected Calcium 10.1 Magnesium Total Bilirubin 0.9 AST 20 ALT 14 Alkaline Phosphatase 45 L Troponin I < 0.020 Total Protein 7.4 Albumin 4.9 H Globulin 2.5 Albumin/Globulin Ratio 2.0 Triglycerides Cholesterol LDL Cholesterol, Calc HDL Cholesterol Cholesterol/HDL Ratio TSH Ur Collection Type Cancelled Clean Catch Urine Color Cancelled Yellow Urine Clarity Cancelled Turbid A Urine pH Cancelled 7.5 H Ur Specific [place] Cancelled 1.011 Urine Protein Cancelled Negative Urine Glucose (UA) Cancelled Negative Urine Ketones Cancelled Negative Urine Blood Cancelled Negative Urine Nitrite Cancelled Negative Urine Bilirubin Cancelled Negative Urine Urobilinogen (Auto) Cancelled Negative Ur Leukocyte Esterase Cancelled Negative Urine RBC Cancelled 4 H Urine WBC Cancelled 18 H Ur Squamous Epith Cells Cancelled 3 Ur Transition Epith Cell Cancelled Ur Renal Epithelial Cell Cancelled Calcium Carbonate Cryst Cancelled Calcium Phosphate Cryst Cancelled Calcium Oxalate Crystal Cancelled Leucine Crystals Cancelled Cystine Crystals Cancelled Uric Acid Crystals Cancelled Triple Phos Crystals Cancelled Tyrosine Crystals Cancelled Amorphous Crystals Cancelled Present A Urine Bacteria Cancelled Rare Cellular Casts Cancelled Epithelial Casts Cancelled Fatty Casts Cancelled Hyaline Casts Cancelled Granular Casts Cancelled Waxy Casts Cancelled Broad Casts Cancelled RBC Casts Cancelled Urine Mucus Cancelled Urine Trichomonas Cancelled Ur Yeast w Hyphae Cancelled Urine Yeast (Budding) Cancelled Present A Urine Sperm Cancelled Ur Oval Fat Bodies Cancelled Ur Culture Indicated? Yes Urine Opiates Screen Positive A Urine Fentanyl Screen Negative Ur Barbiturates Screen Negative U Amphetamin/Meth Scrn Negative U Benzodiazepines Scrn Negative U Cocaine Metab Screen Negative U Marijuana (THC) Screen Negative 07/06/25 07/06/25 04:38 07:22 WBC 9.5 D RBC 4.81 Hgb 14.9 Hct 41.6 MCV 87 MCH 31.0 MCHC 35.8 RDW Std Deviation 38.6 Plt Count 259 Neut % (Auto) 76 Lymph % (Auto) 19 [place] % (Auto) 5 Eos % (Auto) 0 Baso % (Auto) 1 Neut # (Auto) 7.2 Lymph # (Auto) 1.8 [place] # (Auto) 0.4 Eos # (Auto) 0.0 Baso # (Auto) 0.1 Immature Gran # (Auto) 0.03 H Absolute Nucleated RBC 0.00 Immature Gran % 0 Nucleated RBC % 0 PT 11.9 INR 1.1 APTT 26.0 Sodium 141 Potassium 3.5 D Chloride 103 Carbon Dioxide 25.6 Anion Gap 12 BUN 11 Creatinine 1.0 Estim Creat Clear Calc 76.6 eGFR > 60 BUN/Creatinine Ratio 11 L Glucose [address] Glu mg/dL 111 Hemoglobin A1c 5.5 Calculated Osmolality 282 Calcium 9.4 Corrected Calcium Magnesium 1.8 Total Bilirubin AST ALT Alkaline Phosphatase Troponin I < 0.020 Total Protein Albumin Globulin Albumin/Globulin Ratio Triglycerides 96 Cholesterol 147 LDL Cholesterol, Calc 96 HDL Cholesterol 32 L Cholesterol/HDL Ratio 4.6 TSH 3.47 Ur Collection Type Urine Color Urine Clarity Urine pH Ur Specific [place] Urine Protein Urine Glucose (UA) Urine Ketones Urine Blood Urine Nitrite Urine Bilirubin Urine Urobilinogen (Auto) Ur Leukocyte Esterase Urine RBC Urine WBC Ur Squamous Epith Cells Ur Transition Epith Cell Ur Renal Epithelial Cell Calcium Carbonate Cryst Calcium Phosphate Cryst Calcium Oxalate Crystal Leucine Crystals Cystine Crystals Uric Acid Crystals Triple Phos Crystals Tyrosine Crystals Amorphous Crystals Urine Bacteria Cellular Casts Epithelial Casts Fatty Casts Hyaline Casts Granular Casts Waxy Casts Broad Casts RBC Casts Urine Mucus Urine Trichomonas Ur Yeast w Hyphae Urine Yeast (Budding) Urine Sperm Ur Oval Fat Bodies Ur Culture Indicated? Urine Opiates Screen Urine Fentanyl Screen Ur Barbiturates Screen U Amphetamin/Meth Scrn U Benzodiazepines Scrn U Cocaine Metab Screen U Marijuana (THC) Screen Quality Measures Quality Measures none Advance care planning discussed with:: patient Assessment & Plan Assessment Current Active Medications: Generic Name Dose Route Start Last Admin Trade Name Freq PRN Reason Stop Dose Admin Acetaminophen 650 mg 07/06/25 00:55 Acetaminophen 325 Mg Tablet PO 08/05/25 00:54 Q6H PRN Fever >100.3 Acetaminophen 650 mg 07/06/25 00:55 Acetaminophen 325 Mg Tablet PO 08/05/25 00:54 Q6H PRN PAIN SCALE 1-3 (mild Aspirin 81 mg 07/06/25 09:00 07/06/25 09:46 Aspirin Ec 81 Mg Tabec PO 08/05/25 08:59 81 mg QDAY BEN Administration Atorvastatin Calcium 80 mg 07/06/25 21:00 Atorvastatin Calcium 20 Mg Tablet PO 08/05/25 20:59 HS BEN Clopidogrel Bisulfate 75 mg 07/06/25 09:00 07/06/25 10:45 Clopidogrel Bisulfate 75 Mg Tablet PO 08/05/25 08:59 75 mg QDAY BEN Administration Heparin Sodium (Porcine) 5,000 unit 07/06/25 06:00 07/06/25 09:25 Heparin Sod Inj 5000 Unit/Ml Vial SC 07/20/25 05:59 5,000 unit Q8HR BEN Administration Ondansetron HCl 4 mg 07/06/25 00:55 Ondansetron Inj 2 Mg/Ml Inj 2 Ml IVP 08/05/25 00:54 Q6H PRN NAUSEA OR VOMITING Protocol Paroxetine HCl 40 mg 07/06/25 09:00 07/06/25 12:11 Paroxetine Hcl 10 Mg Tablet PO 08/05/25 08:59 40 mg QDAY BEN Administration Sennosides 1 tab 07/06/25 09:00 07/06/25 10:41 Senna/Docusate Sod 1 Tab Tablet PO 08/05/25 08:59 Not Given QDAY BEN Protocol Plan Mr. Shen is a 70 y/o male with PMH left frontotemporal subarachnoid cyst (diagnosed 2007), hypertension, hyperlipidemia, tremor who presents with acute onset dizziness. LKAW 16:00 on 07/05. NIHSS 4. Admitted for stroke w/u. #Vertigo #Dysmetria #c/f stroke Hx stroke/TIA: none Hx afib: none Smoking hx: none Initial symptoms: acute onset dizziness/vertigo (ongoing), nausea (improved with metoclopramide), presyncope, dysmetria (though may be exacerbated by chronic tremor), R facial numbness and bilateral visual field defect in the upper quadrants. LKAW: 16:00 on 07/05 Initial NIHSS: 4 Inital BP: 170/[id number] Initial glucose: 119 UDS: + opiates (rx [place] for chronic pain) CT head w/o: Large left subarachnoid cyst present, causing mass effect. No acute hemorrhage. CTA head/neck w/: No LVO MRI/MRA w/ and w/o: showed large area of encephalomalacia versus arachnoid cyst peripheral to the left but was negative for ischemic or hemorrhagic stroke cerebral hemisphere. Meds given: Aspirin 325 mg PO, Plavix 75 mg DDX: cerebellar stroke, mass effect from left subarachnoid cyst, vestibular neuritis. Less likely BPPV given sx not positional, vertigo is persistent. Less likely labyrinthitis or Meniere disease given no hearing loss/tinnitus/ear fullness. Dx: -Ordered 07/06 EEG awake and drowsy, results pending Plan: - Pending A1C (5.5), lipid panel, TSH, troponin, MRI, TTE, EKG, bedside swallow eval - Started aspirin 81 mg PO daily, plavix 75 mg PO daily - Neuro Checks q4h -Started IV labetalol 10 mg q10MIN prn if Blood pressure is greater than 220/120 or there is a concern for End organ damage/contraindications for permissive HTN. If blood pressure is greater than 220/120 give labetalol PO or IV or Vasotec IV with a goal of 15% reduction in BP during the first 24 hours. - Aspiration Precautions, Head of bed 30 degrees - Euglycemia and avoid Hyperthermia - Consulted neuro, appreciate recs #Left subarachnoid cyst Diagnosed 2007. Has seen multiple neurologists in the past, including Dr. Meyer. No previous surgical intervention. Seen on CT head. Stable per tele neuro and radiology, though no previous head imaging available on this EMR Plan: - If other sources of vertigo/dysmetria ruled out, can consider transfer for neurosurgery #Presyncope No anemia on CBC, no hx heart disease/arrhythmias. Electrolytes WNL. Less likely infection as patient has no fever, no leukocytosis, no shortness of breath/cough, urinary sx Given 1L LR in ED DDX: cardiac arrhythmia, orthostatic hypotension, aortic stenosis, opiates/medications Plan: - Pending orthostatics (ordered for 7 AM 07/06), results WNL - Pending TTE #Tremor Present since childhood Tremor of b/l UE, at rest and action, worse with intentional actions, worse with anxiety, also includes head (present since childhood) Most likely essential tremor. Plan: - Nothing to do at this time since tremor is not bothersome to patient - Can consider propranolol if pharmacological intervention deemed necessary #Ground level fall 2/2 dizziness, presyncope Not on blood thinners CT head showd no acute hemorrhage XR wrist showed no fracture. Pt reports his wrist feels better Plan: - CTM with neuro checks - Fall precautions #Hypertension Pt takes 3 BP meds at home (PO Lotensin 40 mg qD, PO HCTZ 25 mg qAM, and PO metoprolol succinate 1 tab BID) Recent BPs have been in the 180s/100s Rx: -Started PO lisinopril 40 mg qD #Hyperlipidemia Plan: - Atorvastatin 80 mg PO daily for plaque stabilization #Depression #Anxiety Home med: Paxil (unknown dose), Divalproax (unknown dose, DC vs EC?) Plan: - Paroxetine 40 mg daily (home med) Checklist Dispo: Admit to tele for q4h neuro checks Diet: Cardiac Bowel Reg: Started PO Senna/Docusate 1 tab qD VTE ppx: heparin subQ GI ppx: n/a Pain mgmt: Tylenol PRN Code status: full Plan discussed with attending Dr. Diaz and senior resident Dr. Taylor Infante, DO Internal Medicine, PGY-1 Attending Provider Attestation/Addendum I have examined the patient, reviewed labs and imaging findings, discussed the case with the resident(s), and reviewed entered orders. I agree with the plan of care as outlined in this note. Dr. Emily MD
--- NOTE | 2025-07-06 19:09 | PC.NURSE ---
transferred pt.to [id number] with all personal belongings.
--- NOTE | 2025-07-06 19:24 | PD.RESPRO ---
Documentation for date of: 07/06/25 Subjective Subjective Interval history: Patient examined at bedside. Vitals are stable, labs significant for A1c 5.5, TSH 3.47, lipid pannel unremarkable. CT head negative, CT head and neck negative for any LVO. MRI resulted negative as well for no acute infarcts or hemorrhage or mass effect. Patient endorses dizziness with positional change and with head movement. Denies any nausea or vomiting. Worse when laying down and endorsing decreased appetite due to anxiety. Patient follows with neurology Dr. Meyer. States that he has not had surgery done in the past in regard to his brain cyst. Plan to continue aspirin, Plavix, atorvastatin. EEG is pending, continue permissive HTN. Exam Vital Signs Temp Pulse Resp BP Pulse Ox O2 Del Method 97.7 F 86 14 169/97 H 97 Room Air 07/06/25 16:00 07/06/25 16:00 07/06/25 16:00 07/06/25 16:00 07/06/25 16:00 07/06/25 16:00 Narrative Exam GENERAL APPEARANCE: Elderly male, well-nourished in no acute distress. HEENT: Normocephalic, atraumatic, extraocular movements intact. Pupils: Equal reacting to light and accommodation NECK: Supple, no JVD or bruits. CARDIOVASULAR: Heart: S1, S2 heard, regular without S3-S4 or murmur no rubs or gallops. LUNGS/CHEST: Clear to auscultation bilaterally. No rails, rhonchi, or wheezing. Normal inspection. ABDOMEN: Soft, nontender, with normal bowel sounds. No pulsatile masses. No rebound, rigidity, or guarding. Normal inspection and palpation. EXTREMITIES: Normal inspection and palpation. No edema, clubbing or cyanosis. SKIN: Warm and dry without rashes. Normal inspection. MUSCULOSKELETAL: No cervical, thoracic, lumbar or midline bony tenderness. Normal inspection. NEURO: Alert, awake and oriented x3. Cranial nerves: II through XII grossly intact. Speech and language: Normal with no dysarthria or dysphasia. Motor system: Tone and bulk: Normal: Strength: 5 out of 5 in all 4 extremities; No pronator drift noted. Plantar reflex: Downgoing bilaterally. Sensory system: Intact to all modalities of sensation bilaterally. Coordination: Intact to [id number] test. Postive for b/l tremors. Gait: Not tested. No signs of meningeal irritation noted. PSYCHIATRIC: Normal mood and affect. Objective Labs 07/07/25 05:37 07/07/25 05:37 Labs: Laboratory Results - last 24 hr 07/05/25 07/05/25 07/05/25 19:32 22:01 22:35 WBC 6.5 RBC 4.91 Hgb 15.5 Hct 42.0 MCV 86 MCH 31.6 MCHC 36.9 RDW Std Deviation 38.3 Plt Count 239 Neut % (Auto) 55 Lymph % (Auto) 34 [place] % (Auto) 8 Eos % (Auto) 3 Baso % (Auto) 1 Neut # (Auto) 3.5 Lymph # (Auto) 2.2 [place] # (Auto) 0.5 Eos # (Auto) 0.2 Baso # (Auto) 0.1 Immature Gran # (Auto) 0.01 H Absolute Nucleated RBC 0.00 Immature Gran % 0 Nucleated RBC % 0 PT INR APTT Sodium 141 Potassium 4.0 Chloride 102 Carbon Dioxide 28.2 Anion Gap 11 BUN 11 Creatinine 1.2 Estim Creat Clear Calc 63.8 eGFR > 60 BUN/Creatinine Ratio 9 L Glucose [address] Glu mg/dL Hemoglobin A1c Calculated Osmolality 281 Calcium 10.1 Corrected Calcium 10.1 Magnesium Total Bilirubin 0.9 AST 20 ALT 14 Alkaline Phosphatase 45 L Troponin I < 0.020 Total Protein 7.4 Albumin 4.9 H Globulin 2.5 Albumin/Globulin Ratio 2.0 Triglycerides Cholesterol LDL Cholesterol, Calc HDL Cholesterol Cholesterol/HDL Ratio TSH Ur Collection Type Cancelled Clean Catch Urine Color Cancelled Yellow Urine Clarity Cancelled Turbid A Urine pH Cancelled 7.5 H Ur Specific [place] Cancelled 1.011 Urine Protein Cancelled Negative Urine Glucose (UA) Cancelled Negative Urine Ketones Cancelled Negative Urine Blood Cancelled Negative Urine Nitrite Cancelled Negative Urine Bilirubin Cancelled Negative Urine Urobilinogen (Auto) Cancelled Negative Ur Leukocyte Esterase Cancelled Negative Urine RBC Cancelled 4 H Urine WBC Cancelled 18 H Ur Squamous Epith Cells Cancelled 3 Ur Transition Epith Cell Cancelled Ur Renal Epithelial Cell Cancelled Calcium Carbonate Cryst Cancelled Calcium Phosphate Cryst Cancelled Calcium Oxalate Crystal Cancelled Leucine Crystals Cancelled Cystine Crystals Cancelled Uric Acid Crystals Cancelled Triple Phos Crystals Cancelled Tyrosine Crystals Cancelled Amorphous Crystals Cancelled Present A Urine Bacteria Cancelled Rare Cellular Casts Cancelled Epithelial Casts Cancelled Fatty Casts Cancelled Hyaline Casts Cancelled Granular Casts Cancelled Waxy Casts Cancelled Broad Casts Cancelled RBC Casts Cancelled Urine Mucus Cancelled Urine Trichomonas Cancelled Ur Yeast w Hyphae Cancelled Urine Yeast (Budding) Cancelled Present A Urine Sperm Cancelled Ur Oval Fat Bodies Cancelled Ur Culture Indicated? Yes Urine Opiates Screen Positive A Urine Fentanyl Screen Negative Ur Barbiturates Screen Negative U Amphetamin/Meth Scrn Negative U Benzodiazepines Scrn Negative U Cocaine Metab Screen Negative U Marijuana (THC) Screen Negative 07/06/25 07/06/25 04:38 07:22 WBC 9.5 D RBC 4.81 Hgb 14.9 Hct 41.6 MCV 87 MCH 31.0 MCHC 35.8 RDW Std Deviation 38.6 Plt Count 259 Neut % (Auto) 76 Lymph % (Auto) 19 [place] % (Auto) 5 Eos % (Auto) 0 Baso % (Auto) 1 Neut # (Auto) 7.2 Lymph # (Auto) 1.8 [place] # (Auto) 0.4 Eos # (Auto) 0.0 Baso # (Auto) 0.1 Immature Gran # (Auto) 0.03 H Absolute Nucleated RBC 0.00 Immature Gran % 0 Nucleated RBC % 0 PT 11.9 INR 1.1 APTT 26.0 Sodium 141 Potassium 3.5 D Chloride 103 Carbon Dioxide 25.6 Anion Gap 12 BUN 11 Creatinine 1.0 Estim Creat Clear Calc 76.6 eGFR > 60 BUN/Creatinine Ratio 11 L Glucose [address] Glu mg/dL 111 Hemoglobin A1c 5.5 Calculated Osmolality 282 Calcium 9.4 Corrected Calcium Magnesium 1.8 Total Bilirubin AST ALT Alkaline Phosphatase Troponin I < 0.020 Total Protein Albumin Globulin Albumin/Globulin Ratio Triglycerides 96 Cholesterol 147 LDL Cholesterol, Calc 96 HDL Cholesterol 32 L Cholesterol/HDL Ratio 4.6 TSH 3.47 Ur Collection Type Urine Color Urine Clarity Urine pH Ur Specific [place] Urine Protein Urine Glucose (UA) Urine Ketones Urine Blood Urine Nitrite Urine Bilirubin Urine Urobilinogen (Auto) Ur Leukocyte Esterase Urine RBC Urine WBC Ur Squamous Epith Cells Ur Transition Epith Cell Ur Renal Epithelial Cell Calcium Carbonate Cryst Calcium Phosphate Cryst Calcium Oxalate Crystal Leucine Crystals Cystine Crystals Uric Acid Crystals Triple Phos Crystals Tyrosine Crystals Amorphous Crystals Urine Bacteria Cellular Casts Epithelial Casts Fatty Casts Hyaline Casts Granular Casts Waxy Casts Broad Casts RBC Casts Urine Mucus Urine Trichomonas Ur Yeast w Hyphae Urine Yeast (Budding) Urine Sperm Ur Oval Fat Bodies Ur Culture Indicated? Urine Opiates Screen Urine Fentanyl Screen Ur Barbiturates Screen U Amphetamin/Meth Scrn U Benzodiazepines Scrn U Cocaine Metab Screen U Marijuana (THC) Screen Quality Measures Quality Measures none Advance care planning discussed with:: patient Assessment & Plan Assessment Current Active Medications: Generic Name Dose Route Start Last Admin Trade Name Freq PRN Reason Stop Dose Admin Acetaminophen 650 mg 07/06/25 00:55 Acetaminophen 325 Mg Tablet PO 08/05/25 00:54 Q6H PRN Fever >100.3 Acetaminophen 650 mg 07/06/25 00:55 Acetaminophen 325 Mg Tablet PO 08/05/25 00:54 Q6H PRN PAIN SCALE 1-3 (mild Aspirin 81 mg 07/06/25 09:00 07/06/25 09:46 Aspirin Ec 81 Mg Tabec PO 08/05/25 08:59 81 mg QDAY BEN Administration Atorvastatin Calcium 80 mg 07/06/25 21:00 Atorvastatin Calcium 20 Mg Tablet PO 08/05/25 20:59 HS BEN Clopidogrel Bisulfate 75 mg 07/06/25 09:00 07/06/25 10:45 Clopidogrel Bisulfate 75 Mg Tablet PO 08/05/25 08:59 75 mg QDAY BEN Administration Heparin Sodium (Porcine) 5,000 unit 07/06/25 06:00 07/06/25 13:51 Heparin Sod Inj 5000 Unit/Ml Vial SC 07/20/25 05:59 5,000 unit Q8HR BEN Administration Labetalol HCl 10 mg 07/06/25 13:45 Labetalol Inj 5 Mg/Ml Vial 20 Ml IVP Q10MIN PRN SBP>220 or DBP>105 Lisinopril 40 mg 07/06/25 13:50 07/06/25 15:08 Lisinopril 20 Mg Tablet PO 08/05/25 13:49 40 mg QDAY BEN Administration Ondansetron HCl 4 mg 07/06/25 00:55 Ondansetron Inj 2 Mg/Ml Inj 2 Ml IVP 08/05/25 00:54 Q6H PRN NAUSEA OR VOMITING Protocol Paroxetine HCl 40 mg 07/06/25 09:00 07/06/25 12:11 Paroxetine Hcl 10 Mg Tablet PO 08/05/25 08:59 40 mg QDAY BEN Administration Sennosides 1 tab 07/06/25 09:00 07/06/25 10:41 Senna/Docusate Sod 1 Tab Tablet PO 08/05/25 08:59 Not Given QDAY BEN Protocol Plan Patient is 70 y/o male with PMH left frontotemporal subarachnoid cyst (diagnosed 2007), hypertension, hyperlipidemia, tremor presenting to ED with cc of dizziness. Neurology consulted for workup stroke. #Dizziness #Fall #Arachnoid cyst TIA vs seizure vs mass affect from brain cyst. Patient was walking to the bathroom at home when he lost balance and fell. Stated that while falling he did hit his head but did not lose any consciousness. Was able to get up and lay on the bed. Dizziness worsened but able to call 911 for help. Denies recurrent falls. Has not had any surgical intervention in the past for his brain cyst. NIHSS score 4, BP on admission systolic 170-180. CT head w/o: Large left subarachnoid cyst present, causing mass effect. No acute hemorrhage. CTA head/neck w/: No LVO MRI/MRA w/ and w/o: showed large area of encephalomalacia versus arachnoid cyst peripheral to the left but was negative for ischemic or hemorrhagic stroke cerebral hemisphere. A1c 5.5, TSH 3.47, lipid pannel unremarkable. -continue aspirin 81 mg daily, Plavix 75 mg daily - Continue atorvastatin 80 mg daily - EEG pending - Neurochecks every 4 hour - Continue permissive hypertension - IV labetalol 10 mg as needed for SBP greater than 220 -continue PT #Hypertension Continue home medications lisinopril 40 mg daily after. Defer permissive hypertension #Hyperlipidemia Atorvastatin 80 mg daily #Depression #Anxiety Primary care team to manage above conditions and ongoing care needs. The patient's management plan was discussed with my attending physician Dr. Meyer. Marychuy Mcginnis, PGY-2 Attending Provider Attestation/Addendum I personally have seen and examined the patient at the bedside and I agreed with resident's findings, assessment and plan of care. MRI : arachnoid cyst: stable FU with EEG DZ is likely from anxiety.
[2025-07-06] MEDS: ATORVASTATIN CALCIUM 20 MG TABLET 80 MG PO (20:12)
[2025-07-07] VITALS: BP 165/88; PULSE 90; PULSE 91; RESP 20; TEMP 36.4; O2SAT 97
[2025-07-07 04:00] VITALS: BP 140/74; PULSE 93; PULSE 95; RESP 16; TEMP 36.1; O2SAT 98
[2025-07-07 05:13] VITALS: BMI 24.6
[2025-07-07] MEDS: HEPARIN SOD INJ 5000 UNIT/ML VIAL SC ×2 (06:03→13:07)
[2025-07-07 06:07] LABS: Basophils # (Auto) 0.0 Thou/mm3 (0.0-0.2); Basophils % (Auto) 1 % (0-2.5); Eosinophils # (Auto) 0.0 Thou/mm3 (0.0-0.5); Eosinophils % (Auto) 0 % (0-10); Hematocrit 38.2 % (41.0-53.0); Hemoglobin 13.7 g/dL (13.5-16.0); Immature Granulocytes Auto 0.02 Thou/mm3 (0.00-0.00); Lymphocytes # (Auto) 2.5 Thou/mm3 (1.0-4.8); Lymphocytes % (Auto) 31 % (10-50); Mean Corpuscular HGB Conc 35.9 g/dl (31.0-37.0); Mean Corpuscular Hemoglobin 31.4 pg (25.0-35.0); Mean Corpuscular Volume 87 fL (80-100); Monocytes # (Auto) 0.5 Thou/mm3 (0.0-0.8); Monocytes % (Auto) 6 % (0-12); Neutrophils # (Auto) 5.0 Thou/mm3 (1.8-7.7); Neutrophils % (Auto) 62 % (37-80); Nucleated Red Blood Cell # 0.00 Thou/mm3 (0.00-0.00); Nucleated Red Blood Cell % 0 /100 WBC (0); Platelet Count 242 Thou/mm3 (140-440); RDW Standard Deviation 39.8 fL (35.1-43.9); Red Blood Count 4.37 Miln/mm3 (4.50-5.90); White Blood Count 8.1 Thou/mm3 (3.8-10.6)
[2025-07-07 06:31] LABS: Anion Gap 11 (7-16); BUN/Creatinine Ratio 12 Ratio (12-20); Blood Urea Nitrogen 11 mg/dL (9-23); Calcium 9.0 mg/dL (8.3-10.6); Carbon Dioxide 26.1 mMol/L (20.0-31.0); Chloride 105 mMol/L (98-107); Creatinine (Component) 0.9 mg/dL (0.6-1.3); Estimated Creatinine Clearance 85.1 mL/min (>60); Glucose 124 mg/dL (74-106); Magnesium 2.1 mg/dL (1.6-2.6); Osmolality,Calculated 283 (275-295); Phosphorous 2.9 mg/dL (2.4-5.1); Potassium 3.6 mMol/L (3.4-5.1); Sodium 142 mMol/L (136-145); eGFR > 60 See Note
[2025-07-07 06:35] LABS: INR 1.1 (0.9-1.3); Partial Thromboplastin Time 30.7 Seconds (22.0-36.0); Prothrombin Time 11.6 Seconds (9.0-12.2)
[2025-07-07 08:00] VITALS: BP 146/66; PULSE 100; PULSE 88; RESP 18; TEMP 36.2; O2SAT 96
[2025-07-07 09:08] VITALS: BP 146/66; PULSE 88
[2025-07-07] MEDS: cefTRIAXone/D5w 1gm IV premix 1 GM/50 ML BAG IV (09:08)
[2025-07-07] MEDS: ASPIRIN EC 81 MG TABEC PO (09:08)
[2025-07-07] MEDS: CLOPIDOGREL BISULFATE 75 MG TABLET PO (09:09)
[2025-07-07] MEDS: SENNA/DOCUSATE SOD 1 TAB TABLET PO (09:09)
--- NOTE | 2025-07-07 10:46 | PC.SS ---
Shayan Shen is a 70 year-old male admitted to [facility] for Stroke PORTER. SS conducted bedside contact with the patient to complete initial assessment and to discuss discharge planning. Role and reason explained. Patient confirmed demographic information. Patient identifies his sister Rosio Saravia [phone] as his surrogate decision maker. Pt lives alone and is able to complete all ADLS independently. Pt does not possess any DME. Pts PCP is Kathrine Kendally. Pharmacy of choice is [facility]. Discharge options discussed and the pt wishes to return home.? Pt family will provide transport. No further intervention required at this time, healthcare social worker would be available to address any further concerns. DC Plan: Home Contact: Rosio Perkins Address: Confirmed on face sheet PCP: Pierre
[2025-07-07 12:00] VITALS: BP 164/62; PULSE 95; PULSE 97; RESP 17; TEMP 36.6; O2SAT 97
--- NOTE | 2025-07-07 13:30 | PC.PT ---
PT eval only. Patient is xI with bed mobility, transfers, and ambulation. Patient is safe to ambulate to the bathroom and in the halls with 1 staff for patient confidence. RN made aware.
--- NOTE | 2025-07-07 14:21 | ESDS_ITS ---
<Statement entered by Simón Brady MD - 07/08/25 05:46> I saw and examined patient personally and supervised PGY 1 resident, Dr. Infante with formulating a management plan. I agree with the documentation with the exceptions as listed below. Patient presented with dizziness and was admitted for stroke workup. CT brain and MRI were negative for any acute hemorrhage or infarct. Malu-Hallpike maneuver was positive and patient was diagnosed with BPPV. Enedelia maneuver was performed and patient had improvement of his dizziness. He was counseled on maneuvers to do at home to improve his dizziness. All patient's labs are currently returning to his baseline. Patient currently clinically stable and fit for discharge to home with home health. Plan of care discussed with Attending Dr. Malika Brady MD PGY 2 Disclaimer: This note was dictated by speech recognition. Minor errors in men's basketball coach may be present due to voice recognition software. Planned Discharge Date 07/07/25 DS: Providers Provider Date of admission: 07/06/25 00:55 Primary care physician: Physician No Primary/Family Admitting Provider: Gregg Okeefe MD Attending Provider on Admission: Kobi Diaz MD Consults: 07/06/25 01:32 Consult to Neurology / Tele-Neurology Stat Comment: Consulting Provider: Eldon Meyer 07/07/25 06:38 Referral Physical Therapy Stat Comment: Physician Instructions: Attending Provider on DC: Angel Daly DO Discharging Provider: Sarthak Infante DO DS: Diagnosis Problem List Completed Was Problem List Reviewed/Reconciled?: Yes Hospital Course Hospital Course Hospital course: Summary: Patient is a 70-year-old male with a past medical history of hypertension, hyperlipidemia, tremors, and frontotemporal subarachnoid cyst (2008 diagnosed) that appears to be stable who presented to the emergency room on 07/06/25 with a chief complaint of vertigo with generalized weakness. ER: Afebrile. BP 170-180s/80-110s. CBC and CMP unremarkable. UA negative for UTI. UDS + opiates. Stroke alert called. LKAW 16:00 on 07/05. NIHSS 4. Tele-neuro's exam showed R facial numbness and bilateral visual field defect in the upper quadrants. CT head showed stable large subarachnoid cyst since 2007, per tele neurologist and radiologist. No previous head imaging available in EMR. CTA showed no LVO. Wrist XR showed no fracture. CXR unremarkable. Given 1L LR, metoclopramide 5 mg IV, ceftriaxone 1 g IV, Aspirin 325 mg PO, plavix 75 mg PO. Hospital: During patient's hospital course, he was initially placed on stroke protocol and had a head CT, head MRI, EEG, and orthostatic vitals taken which were all negative and eventually ruled out any underlying stroke, seizure, or orthostatic syncope that could be contributing to patient's initial vertigo. However, he was found to have a positive [place]-Hallpike maneuver on 07/07 and subsequently treated with an Enedelia maneuver for his presumed BPPV which seemed to resolve his symptoms of dizziness and vertigo. All imaging done for work-up of his ground- level fall also came back negative. He was deemed clinically stabilized by 07/07 and discharged home. Patient is safe to discharge to home. Further discharge instructions below. - Take anitbiotics for two more days for your urine infection ? We have increased your cholesterol medication dose. Take as directed. ? We have started you on a medication called meclizine. Take as needed for dizziness. ? We have stopped your ibuprofen. ? Continue rest of your home medication as before. ? Follow-up with neurology, Dr Meyer within 1 week of discharge. - Follow up with your primary care physician within 1 week of discharge. If you do not have a primary care physician, please follow up with the [facility] Residents clinic ([phone]) ? If you experience any new, worsening or persistent symptoms either call your primary doctor, or dial 911 or present to the emergency department. #BPPV #Vertigo #Dysmetria #Stroke ruled out #Left subarachnoid cyst #Presyncope #Tremor #Ground level fall #Hypertension #Hyperlipidemia #Depression #Anxiety Status at Discharge Cognitive/Behavioral Status at Discharge: stable Functional Status at Discharge: independent ambulation Overall Status at Discharge: patient is back to baseline Patient's care plan was discussed with my attending, Dr. Daly, and senior resident, Dr. Brady. Sarthak Infante, DO Internal Medicine, PGY-1 Time Spent with Patient Time attestation: Total time spent providing and/or coordinating discharge services: Time spent: Greater than 30 minutes Exam Vital Signs Temp Pulse Resp BP Pulse Ox O2 Del Method 97.9 F 95 17 164/62 H 97 Room Air 07/07/25 12:00 07/07/25 12:00 07/07/25 12:00 07/07/25 12:00 07/07/25 12:00 07/07/25 12:00 Narrative Exam General: No acute distress, well nourished Eye: PERRL, EOMI, normal conjunctiva, no scleral icterus HENT: Normocephalic, atraumatic, normal hearing, moist oral mucosa Neck: Supple, non-tender, no JVD, no lymphadenopathy Lungs: Clear to auscultation bilaterally, non-labored respirations, symmetric chest rise, no use of accessory muscles Heart: Normal S1 and S2, no S3 or S4 appreciated. Normal rate and regular rhythm, no murmurs, rubs gallops, or edema. Peripheral pulses intact bilaterally, capillary refill brisk distally Abdomen: Soft, non-tender, non-distended, normal bowel sounds. No guarding or rebound tenderness. Musculoskeletal: Normal range of motion and strength, no tenderness or swelling Skin: Skin is warm, dry, no rashes or lesions. Neurologic: Malu-Hallpike maneuver positive. No facial droop appreciated. Facial sensation to light touch intact bilaterally at the forehead, cheeks, and jaw line. Able to smile, raise eyebrows, and puff out cheeks normally. 5/5 muscle strength of BUE and BLE. Psychiatric: Cooperative, appropriate mood and affect Discharge Plan Plan Patient Disposition: Home w/HOME HEALTH Patient condition on transfer: Stable Care Plan Goals: - Take anitbiotics for two more days for your urine infection ? We have increased your cholesterol medication dose. Take as directed. ? We have started you on a medication called meclizine. Take as needed for dizziness. ? We have stopped your ibuprofen. ? Continue rest of your home medication as before. ? Follow-up with neurology, Dr Meyer within 1 week of discharge. - Follow up with your primary care physician within 1 week of discharge. If you do not have a primary care physician, please follow up with the [facility] Residents clinic ([phone]) ? If you experience any new, worsening or persistent symptoms either call your primary doctor, or dial 911 or present to the emergency department. Prescriptions/Referrals Prescriptions/Med Rec: New atorvastatin [Lipitor] 40 mg tablet 40 mg PO QPM 30 Days Qty: 30 0RF sennosides-docusate sodium 8.6-50 mg Tablet 1 tab PO QDAY PRN (Reason: constipation) 30 Days Qty: 30 1RF meclizine 25 mg tablet 25 mg PO BID PRN (Reason: dizziness or vertigo) 14 Days Qty: 20 0RF amoxicillin-pot clavulanate 500-125 mg tablet 1 tab PO BID 2 Days Qty: 4 0RF Continued hydrochlorothiazide 25 MG tablet 25 mg PO QAM Qty: 0 metoprolol succinate 25 MG tablet extended release 24 hr 1 tab PO BID Qty: 0 benazepril [Lotensin] 40 MG tablet 40 mg PO DAILY Qty: 0 paroxetine HCl [Paxil] 40 MG tablet 40 mg PO QAM Qty: 0 hydrocodone-acetaminophen 5-300 mg Tablet 1 tab PO Q12H divalproex 250 mg Tablet,Delayed Release (Dr/Ec) 250 mg PO BID fenofibrate 120 mg tablet 120 mg PO DAILY Discontinued ibuprofen 600 mg tablet 600 mg PO Q8H PRN (Reason: pain) Qty: 20 0RF atorvastatin 10 mg tablet 10 mg PO DAILY Referrals: [facility] [Outside] No Primary/Family,Physician [Primary Care Provider] Eldon Meyre MD [Physician, Neurology] Patient/Caregiver Discharge Instructions Discharge Activity: as per physical therapy Education Materials: BPPV Print Language: Jamaican Stand Alone Forms: [employer] Award Info., Patient Portal Info Letter Discharge Order Discharge Orders: Discharge (Routine); Ordered 07/07/25 Ordered By: Simón Brady Quality Discharge Quality Measures stroke Statin ordered >75 y/o:moderate or high intensity dose on DC: no Statin ordered <75 y/o: high intensity dose on DC: no Statin not ordered due to:: not indicated Anticoagulation ordered for A-fib or flutter (current or hx): not indicated Antithrombotic ordered on DC: not indicated (describe) Attestestation MD Attestation I have discussed and was present for the essential components of the discharge history, physical examination, diagnosis, and discharge treatment plan with the resident. I agree with the patient's discharge care as documented by the resident and amended herein by me. Angel Daly DO. The patient understood all discharge instructions, all questions were answered satisfactorily. The patient was instructed to return to the Emergency Department is symptoms worsened or persisted. Patient was stable, afebrile, tolerating p.o. intake and ambulatory at time of discharge home. Home health for physical therapy has been ordered for the patient per PT recommendations. See resident note above for additional details in regards to the patient's antibiotic course in which she will need a 2 more days of Augmentin for UTI, he will also need close follow-up with neurology, Dr Meyer within 1 week of discharge as well as his primary care physician also within 1 week of discharge for further evaluation. Although this document has been carefully reviewed, there may still be some phonetic and other typographical errors. These errors are purely grammatical due to imperfections in the software program and should not be construed in any way to compromise the substance of the patient's medical care during this visit. Time Spent on discharge: 35 minutes
--- NOTE | 2025-07-07 14:36 | PC.SS ---
Walkers The diagnosis creates mobility limitation that significantly impairs ability to participate in the patients activities of daily living either in their entirety, or in a reasonable time frame. Also the patient is able to safely use the walker and the patient?s mobility is sufficiently resolved with the use of the walker and cane has been ruled out.
--- NOTE | 2025-07-07 14:50 | PC.SS ---
Referral for [facility] submitted via [facility], pending responses.
[2025-07-07 16:00] VITALS: BP 165/88; PULSE 101; PULSE 105; RESP 18; TEMP 36.4; O2SAT 96
--- NOTE | 2025-07-08 16:27 | PC.CM ---
Patient accepted by [facility] and start of care date set for 07/09.
--- NOTE | 2025-07-11 09:30 | PD.VPROG1 ---
Telemedicine visit statement This visit was conducted with the use of interactive audio and video telecommunications system that permits real time communication between the patient and the provider. Patient's verbal consent for virtual visit was obtained on 07/07/25 at 0930. Documentation for date of: 07/07/25 Virtual exam Vital Signs Temp Pulse Resp BP Pulse Ox O2 Del Method 97.5 F 105 H 18 165/88 H 96 Room Air 07/07/25 16:00 07/07/25 16:00 07/07/25 16:00 07/07/25 16:00 07/07/25 16:00 07/07/25 16:00 Objective Labs 07/07/25 05:37 07/07/25 05:37
== END 2025-07-07 18:00 | disposition home health service (06) | DRG 149 ==
LOC: SERX 07-06 00:01 → SERHOLD 07-06 01:51 → S2NX 07-06 11:57
PROVIDERS: Emergency Medicine; Admitting Provider Internal Medicine; Emergency Provider Emergency Medicine; Visit Provider Student in an Organized Health Care Education/Training Program
DX: H81.10 Benign paroxysmal vertigo, unspecified ear (principal); N39.0 Urinary tract infection, site not specified; R27.8 Other lack of coordination; E78.5 Hyperlipidemia, unspecified; I10 Essential (primary) hypertension; G25.0 Essential tremor; G93.0 Cerebral cysts; F32.A Depression, unspecified; F41.9 Anxiety disorder, unspecified; H53.40 Unspecified visual field defects; R20.0 Anesthesia of skin; G89.29 Other chronic pain; Z79.02 Long term (current) use of antithrombotics/antiplatelets; Z79.82 Long term (current) use of aspirin; Z79.899 Other long term (current) drug therapy; S09.90XA Unspecified injury of head, initial encounter; W01.0XXA Fall on same level from slipping, tripping and stumbling without subsequent striking against object, initial encounter
CPT/HCPCS: 36415; 70450; 70496; 70498; 70553; 71045; 73110; 80048; 80053; 80061; 80307; 81001; 83036; 83735; 84100; 84443; 84484; 85025; 85610; 85730; 87077; 87086; 87186; 93005; 93306; 95816; 96361; 96365; 96366; 96372; 96375; 97162; 99284; A4649; J0696; J1644; J2250; J2765; J3480; J7120; Q9967; A9270